=== PATIENT | female | born 1995 | race Caucasian/White ===

== ENCOUNTER 2022-02-20 17:21 | Emergency (ER) | payer OTHER, SELFPAY ==
[2022-02-20 17:37] VITALS: BP 111/65; PULSE 68; RESP 14; TEMP 36.6; O2SAT 99
--- NOTE | 2022-02-20 17:53 | ED.SKABFB ---
HPI - Skin/Abscess/Foreign Bdy General Chief complaint: Skin/Abscess/Foreign Body Stated complaint: Skin Sore Time Seen by Provider: 02/20/22 17:53 Source: patient Mode of arrival: ambulatory Limitations: no limitations History of Present Illness HPI narrative: 26-year-old female presented for complaint painful skin lesion to the left corner of the mouth for over one week. Endorses getting these lesions frequently, started taking one fluconazole each month one week before menses due to frequent yeast infection and the mouth lesion concurrently. Also applied toothpaste, fungal cream, and previously prescribed triamcinolone cream without relief. She has followed with credit reporting clerk. Denies bleeding or drainage from the site. MD complaint: rash Related Data Home Medications Medication Instructions Recorded Confirmed norgestimate 0.25 mg-ethinyl 1 tablet PO DAILY 02/20/22 02/20/22 estradiol 35 mcg tablet (Sprintec (28)) Allergies Allergy/AdvReac Type Severity Reaction Status Date / Time No Known Allergies Allergy Verified 02/20/22 17:45 Review of Systems Review of Systems: CONSTITUTIONAL: Denies body aches, fever, chills, or sweats. EYES: Denies visual changes, redness, or discharge. ENT: Denies rhinorrhea, congestion, sore throat, or otalgia. CARDIOVASCULAR: Denies chest pain, palpitations, or edema. RESPIRATORY: Denies cough or dyspnea. SKIN:Left mouth skin lesion MUSCULOSKELETAL: Denies back pain, joint pain, or myalgia. NEUROLOGIC: Denies headache PMFSH Comments At time of signature, I have reviewed and agree with nursing past medical, surgical, social and family history unless otherwise noted. Please see nursing chart for further information. There is no relevant family history pertinent to the presenting complaint Exam Narrative: GENERAL: Well-appearing EYES: conjunctivae clear, and EOMI. ENT: Mucous membranes moist. Left corner of mouth with crusted lesion c/w angular chelitis. Oropharynx without edema, erythema or lesions. CHEST: No respiratory distress. SKIN: Warm, dry. NEURO: Alert and oriented x3. PSYCH: Normal mood and affect Course Course Emergency Course: Patient is aware of diagnosis, understands and agrees to treatment plan. Anticipatory guidance given. Patient agrees to follow-up as directed and is aware of reasons to seek care at the emergency department. Portions of this record may have been created with voice recognition software Level of Care: [facility] Visit Vital Signs Vital signs: Vital Signs Temperature 97.8 F 02/20/22 17:37 Pulse Rate 68 02/20/22 17:37 Respiratory Rate 14 02/20/22 17:37 Blood Pressure 111/65 02/20/22 17:37 Pulse Oximetry 99 02/20/22 17:37 Oxygen Delivery Room Air 02/20/22 17:37 Temperature 97.8 F 02/20/22 17:37 Pulse Rate 68 02/20/22 17:37 Respiratory Rate 14 02/20/22 17:37 Blood Pressure 111/65 02/20/22 17:37 Pulse Oximetry 99 02/20/22 17:37 Oxygen Delivery Room Air 02/20/22 17:37 Reviewed MDM - Skin/Abscess/Foreign Bdy MDM Narrative Medical decision making narrative: Rx fluconazole and advised supportive measures and signs/symptoms to go to the ER. Pt is appropriate for outpt treatment and f/u. Differential Diagnosis Differential diagnosis: Likely abscess of skin or subcutaneous tissue, urticaria, herpes zoster, cellulitis and contact dermatitis Discharge Plan Discharge Clinical Impression: Angular cheilitis Patient Disposition: Home, Self-Care Condition: Stable Additional Instructions: Take the medication as directed Use barrier creams (eg,?zinc oxide or petrolatum) Follow-up with credit reporting clerk and primary care provider. Go to the ER for any worsening symptoms or concerns. Prescriptions: New fluconazole 100 mg tablet 100 mg PO DAILY 14 Days Qty: 14 0RF No Action norgestimate-ethinyl estradiol [Sprintec (28)] 0.25-35 mg-mcg tablet 1 tablet PO DAILY Follow-up/
== END 2022-02-20 18:07 | disposition home or self-care (01) ==
PROVIDERS: Emergency Provider Nurse Practitioner Family
DX: K13.0 Diseases of lips (principal)
CPT/HCPCS: 99213; G0463

== ENCOUNTER 2022-02-24 10:31 | Emergency (ER) | payer OTHER, SELFPAY ==
--- NOTE | 2022-02-24 10:33 | ED.FEMALEGU ---
HPI - Female Genitourinary General Chief complaint: Urogenital-Female Stated complaint: std test Time Seen by Provider: 02/24/22 10:33 Source: patient Mode of arrival: ambulatory Limitations: no limitations History of Present Illness HPI Narrative: Ms. Smith is a 26-year-old female patient presenting to the clinic today with complaints of possible STI. She reports that she began having green discharge starting yesterday with some low back pain. Reports that she has had a history of chlamydia in the past and this drainage looks like a chlamydia drainage. She is currently on fluconazole for an oral yeast infection. She denies any urinary symptoms currently. She denies any fever or chills. States that she has been with the same partner for approximately 3 to 4 months but is unaware if he is faithful or not. Related Data Home Medications Medication Instructions Recorded Confirmed norgestimate 0.25 mg-ethinyl 1 tablet PO DAILY 02/20/22 02/24/22 estradiol 35 mcg tablet (Sprintec (28)) fluconazole 100 mg tablet 100 mg DIRECTED 02/24/22 02/24/22 Allergies Allergy/AdvReac Type Severity Reaction Status Date / Time No Known Allergies Allergy Verified 02/20/22 17:45 Review of Systems Review of Systems: Pertinent positives per HPI. Patient denies any fever, chills, rash, headache, visual changes, dizziness, cough, runny nose, sore throat, shortness of breath, chest pain, palpitations, nausea, vomiting, diarrhea, constipation, abdominal pain, or any urinary issues. PMFSH Comments At the time of my signature, I reviewed and agree with the nursing past medical, surgical, social, and family history. There is no relevant family history pertinent to the patient complaint. Exam Narrative: General: Well-developed, well nourished, in no apparent distress Head: Normocephalic, atraumatic. Cardio: Regular rate and rhythm, s1 and s2 normal, no murmur appreciated. Resp: Clear to auscultation bilaterally, no rhonchi, rales, wheezing or rubs. Abdomen: Soft, pliable, bowel sounds present in all quadrants, non-tender to palpation, no CVAT tenderness. : Pelvic exam performed with Barbara FRIAS at bedside. Verbal consent obtained from patient. Normal external female genitalia without lesions or masses, Urinary meatus: midline, patent without discharge,no lesion or mass Vagina: No lesions, masses, white vaginal discharge in pelvic vault Cervix: pink without mass, lesions, or cervical motion tenderness. Adnexa: without palpable mass or tenderness. Course Course Emergency Course: Portions of this record may have been created with voice recognition software. Level of Care: Express Care Visit Vital Signs Vital signs: Vital signs reviewed MDM - Female Genitourinary MDM Narrative Medical decision making narrative: At the time of visit patient is resting comfortably on the exam table. She would like to have STD testing done today. Urinalysis shows a trace of leukocytes so we will send this for culture and test was negative. Patient has reports of green vaginal discharge. I will treat patient with a course of doxycycline and metronidazole to cover chlamydia, BV, trichomoniasis. We will give her a one-time dose of Rocephin 500 mg to cover gonorrhea. She is currently taking fluconazole which will cover yeast. Supportive measures were discussed with the patient and anticipatory guidance was reviewed. Patient voiced understanding of discharge instructions and agrees to the treatment plan. Differential Diagnosis Differential diagnosis: Likely urinary tract infection, bacterial vaginosis, trichomoniasis, cervicitis, vaginitis, cystitis and other (Sexually transmitted infection) Discharge Plan Discharge Clinical Impression: Purulent vaginal discharge Patient Disposition: Home, Self-Care Condition: Stable Instructions: Antibiotic Form, Sexually Transmitted Diseases (ED), Safe Sex Practices (ED), Vaginal Discharge
[2022-02-24 10:37] VITALS: BP 115/58; PULSE 82; RESP 20; TEMP 36.6; O2SAT 99
[2022-02-24] MEDS: cefTRIAXone 500 MG, LIDOCAINE HCL 1% LOCAL INJ 1 ML IM (11:13)
== END 2022-02-24 11:38 | disposition home or self-care (01) ==
PROVIDERS: Emergency Provider Nurse Practitioner Family
DX: N89.8 Other specified noninflammatory disorders of vagina (principal)
CPT/HCPCS: 81003; 81025; 87070; 87086; 87491; 87591; 87661; 96372; 99214; G0463; J0696

== ENCOUNTER 2022-06-06 14:15 | Emergency (ER) | payer OTHER, SELFPAY ==
--- NOTE | 2022-06-06 14:27 | ED.URI ---
HPI - URI/Sore Throat General Chief Complaint: Upper Respiratory Infection Stated Complaint: congestion cough and sore throat Time Seen by Provider: 06/06/22 14:27 Source: patient, RN notes reviewed and old records reviewed Mode of arrival: ambulatory Limitations: no limitations History of Present Illness HPI Narrative: 26-year-old female presents to the [facility] with 10 days of cough, congestion and a sore throat. Has taken Robitussin. reports being at [facility] 4 days ago, was tested for COVID, flu and strep which she reports all was negative. patient states that she keeps coming down with a cold, getting better, this daughter gets sick patient is not toxic. Denies fevers. Related Data Home Medications Medication Instructions Recorded Confirmed norgestimate 0.25 mg-ethinyl 1 tablet PO DAILY 06/06/22 06/06/22 estradiol 35 mcg tablet (Sprintec (28)) Allergies Allergy/AdvReac Type Severity Reaction Status Date / Time No Known Allergies Allergy Verified 06/06/22 14:45 Review of Systems Review of Systems: All systems reviewed & are unremarkable except as noted in HPI and below Constitutional: Constitutional: Reports no additional constitutional complaints, Denies chills and Denies fever(s) Eyes: Eyes: Reports no additional eye complaints ENT: Reports as per HPI Cardiovascular: Cardiovascular: Reports no additional cardiovascular complaints Respiratory: Respiratory: Reports no additional respiratory complaints Gastrointestinal: Gastrointestinal: Reports no additional gastrointestinal complaints Musculoskeletal: Musculoskeletal: Reports no additional musculoskeletal complaints Integumentary/Breasts: Skin/Breast: Reports system reviewed and no additional complaints, except as docu Neurologic: Reports system reviewed and no additional complaints, except as documented Psychiatric: Psychiatric: Reports no additional psychiatric complaints Allergic/Immunologic: Allergic/Immunologic: Reports no additional allergic/immunologic complaints PMFSH Comments At the time of my signature, I reviewed and agree with the nursing past medical, surgical, social, and family history. There is no relevant family history pertinent to the patient complaint. Exam Const: General: healthy appearing, comfortable, no acute distress, well developed, alert and well nourished Nutritional Appearance: well nourished Orientation/consciousness: patient oriented x3 Limitations: no limitations HENMT: Head: normal to inspection Ears: external ears normal, TM's normal bilaterally and EAC's normal Face/Nose/Sinus: Normal external nose present and Normal nares present Face and sinus: normal facial exam Mouth: Yes Normal oral and palatal mucosa present, Yes lip normal and Yes moist mucous membranes Throat: posterior oropharynx normal and uvula midline Eyes: General: appearance normal, both eyes and all related structures Conjunctivae: conjunctivae normal Pupils: Equal, round and reactive pupils present Neck: Neck: normal visual inspection, full ROM, no lymphadenopathy and no meningeal signs Chest: Chest palpation & inspection: normal inspection of the chest Resp: Effort & Inspection: normal respiratory effort and no use of accessory muscles Auscultation: clear to auscultation bilaterally, no crackles, no rales, no rhonchi and no wheezes Cardio: Rate: regular rate Rhythm: regular rhythm Back/Spine/Pelvis: Cervical Spine: cervical ROM normal and No Cervical spine tenderness Thoracic/Lumbar Spine: thoracic and lumbar spine normal to inspection and thoraco-lumbar ROM normal Skin: General skin exam: normal color Rashes: no rashes Wounds: no wounds Neuro: General: patient oriented x3, moves all extremities, no meningeal signs and no focal motor deficits Cranial nerves: Yes Equal, round and reactive pupils present Speech: normal speech Gait exam (Neuro): Normal gait present Extrem: General: normal to inspection, fu
[2022-06-06 14:34] VITALS: BP 119/59; PULSE 77; RESP 18; TEMP 36.8; O2SAT 100
== END 2022-06-06 15:20 | disposition home or self-care (01) ==
PROVIDERS: Emergency Provider Nurse Practitioner
DX: J06.9 Acute upper respiratory infection, unspecified (principal); R09.82 Postnasal drip
CPT/HCPCS: 99213; G0463

== ENCOUNTER 2022-08-29 12:48 | Emergency (ER) | payer OTHER, SELFPAY ==
[2022-08-29 12:56] VITALS: BP 117/64; PULSE 83; RESP 14; TEMP 36.2; O2SAT 99
--- NOTE | 2022-08-29 13:27 | ED.GENADULT ---
HPI - General Adult General Chief complaint: Urogenital-Female Stated complaint: STD Exposure Source: patient Mode of arrival: ambulatory Limitations: no limitations History of Present Illness HPI narrative: Patient presents for evaluation of vaginal discharge for last 2 days. She indicates the is green in appearance. She has similar symptoms typically right before menstruation however it is usually quite light at that time. She states her current symptoms are consistent with gonorrhea which she has had in the past. Her male sex partner told her that he has gonorrhea. They were last sexually active with one another about 2-3 weeks ago. LMP three weeks ago. Compliant with oral contraception. She denies any fever, chills, nausea, vomiting, abdominal pain, urinary symptoms, vaginal bleeding. Related Data Home Medications Medication Instructions Recorded Confirmed norgestimate 0.25 mg-ethinyl 1 tablet PO DAILY 06/06/22 08/29/22 estradiol 35 mcg tablet (Sprintec (28)) amitriptyline 25 mg tablet 25 mg PO HS PRN Migraine Headache 08/29/22 08/29/22 Allergies Allergy/AdvReac Type Severity Reaction Status Date / Time No Known Allergies Allergy Verified 08/29/22 13:05 Review of Systems Review of Systems: CONSTITUTIONAL: Denies fever, chills, or sweats. EYES: Denies visual changes, redness, or discharge. ENT: Denies rhinorrhea, congestion, sore throat, or otalgia. CARDIOVASCULAR: Denies chest pain, palpitations, or edema. RESPIRATORY: Denies cough or dyspnea. GASTROINTESTINAL: Denies abdominal pain, nausea, vomiting, or diarrhea. GENITOURINARY: Reports green vaginal discharge. Denies dysuria or hematuria. SKIN: Denies rash or itching. MUSCULOSKELETAL: Denies back pain, joint pain, or myalgia. NEUROLOGIC: Denies headache, numbness, dizziness, or weakness. PSYCHIATRIC: Denies anxiety or depression. [facility] Past Medical History Medical History History of gonorrhea Surgical History Surgical History No pertinent past surgical history Family History Family History Mother Family history non-contributory Social History Social History Substance use: never Living arrangements: with family Gender identity (if verbalized by the patient): Female Sexual Orientation (if Verbalized by the Patient): Straight or Heterosexual Spiritual care concerns: No Exam Narrative: GENERAL: Well-appearing, well-nourished, and in no acute distress. HEAD: Normocephalic, atraumatic. EYES: PERRLA and EOMI. ENT: Nares clear, no rhinorrhea or epistaxis. Mucous membranes moist. Oropharynx without tonsillar hypertrophy exudate or other lesions. Bilateral TMs pearly zimmerman nonbulging NECK: Supple. No adenopathy or masses. No carotid bruits or JVD CHEST: Clear to auscultation. No respiratory distress. No wheezes rales or rhonchi HEART: Regular rate and rhythm. No murmur heard. Normal peripheral pulses. ABDOMEN: Soft, nontender, nondistended, normal active bowel sounds. EXTREMITIES: Normal range of motion. No edema. SKIN: Warm, dry, no rash. NEURO: No focal deficits. Alert and oriented x3. PSYCH: Normal mood and affect. Course Course Emergency Course: This is a 27-year-old female who presented for evaluation of green vaginal discharge with recent gonorrhea exposure. She elected be empirically treated for gonorrhea. Will also treat for chlamydia. She has no abdominal pain suggesting PID. She has a follow up with her OBGYN in near future. Advised to keep that appt. Go to ER for fever, abdominal pain or worsening symptoms. Pt in agreement with plan of care Level of Care: Express Care Visit Vital Signs Vital signs: Vital Signs Temperature 36.2 C L 08/29/22 12:56 Pulse Rate 83 02/05
[2022-08-29] MEDS: cefTRIAXone 500 MG, LIDOCAINE HCL 1% LOCAL INJ 1 ML IM (13:30)
== END 2022-08-29 13:50 | disposition home or self-care (01) ==
PROVIDERS: Emergency Provider Nurse Practitioner
DX: N89.8 Other specified noninflammatory disorders of vagina (principal); Z20.2 Contact with and (suspected) exposure to infections with a predominantly sexual mode of transmission
CPT/HCPCS: 87491; 87591; 87661; 96372; 99214; G0463; J0696

== ENCOUNTER 2023-07-23 09:51 | Emergency (ER) | payer OTHER, SELFPAY ==
[2023-07-23 10:00] VITALS: BP 114/61; PULSE 100; RESP 20; TEMP 37.1; O2SAT 98
--- NOTE | 2023-07-23 10:13 | ED.GENADULT ---
HPI - General Adult General Chief complaint: Upper Respiratory Infection Stated complaint: Cough/Chest Congestion/Headache Source: patient, RN notes reviewed and old records reviewed Mode of arrival: ambulatory Limitations: no limitations History of Present Illness HPI narrative: 28-year-old female presents to [facility] with complaints of cough for 5 weeks. Patient states that on she started having sinus congestion, myalgia, ear pressure, and fatigue. Patient states was exposed to influenza and COVID this past week. Patient taking [id number] medications with no relief. MD complaint: Flu symptoms Onset (ago): day(s) (2) Related Data Home Medications Medication Instructions Recorded Confirmed norgestimate 0.25 mg-ethinyl 1 tablet PO DAILY 06/06/22 07/23/23 estradiol 35 mcg tablet (Sprintec (28)) amitriptyline 25 mg tablet 25 mg PO HS PRN Migraine Headache 08/29/22 07/23/23 Allergies Allergy/AdvReac Type Severity Reaction Status Date / Time No Known Allergies Allergy Verified 07/23/23 10:20 Review of Systems Constitutional: Constitutional: Reports no additional constitutional complaints, Reports body ache(s), Denies chills, Reports fatigue, Denies fever(s) and Denies headache(s) Eyes: Eyes: Reports no additional eye complaints and Denies blurry vision ENT: Reports system reviewed and no additional complaints, except as documented, Denies vertigo, Denies dizziness, Denies ear discharge, Denies otalgia, Denies facial pain, Denies headache(s), Reports nasal congestion, Denies nasal discharge, Denies sinus pain, Denies sinus pressure and Denies sore throat Cardiovascular: Cardiovascular: Reports no additional cardiovascular complaints, Denies chest pain, Denies chest pain at rest, Denies rapid heart rate and Denies dyspnea Respiratory: Respiratory: Reports no additional respiratory complaints, Denies chest congestion, Reports cough, Denies pain on inspiration, Denies pain with cough and Denies dyspnea Gastrointestinal: Gastrointestinal: Denies abdominal pain, Denies diarrhea, Denies nausea and Denies vomiting Integumentary/Breasts: Skin/Breast: Denies rash Neurologic: Reports system reviewed and no additional complaints, except as documented, Denies vertigo, Denies dizziness and Denies headache(s) Endocrine: Endocrine: Denies fatigue PMFSH Past Medical History Medical History History of gonorrhea Surgical History Surgical History No pertinent past surgical history Family History Family History Mother Family history non-contributory Social History Social History Substance use: never Living arrangements: with family Gender identity (if verbalized by the patient): Female Sexual Orientation (if Verbalized by the Patient): Straight or Heterosexual Spiritual care concerns: No Comments At the time of my signature, I reviewed and agree with the nursing past medical, surgical, social, and family history. There is no relevant family history pertinent to the patient complaint. Exam Const: General: cooperative, healthy appearing, no acute distress and well nourished Nutritional Appearance: well nourished Orientation/consciousness: patient oriented x3 Limitations: no limitations HENMT: Head: normal to inspection and normocephalic Ears: external ears normal, TM's normal bilaterally, mastoids normal and Abnormal EAC present Face/Nose/Sinus: normal facial exam Face and sinus: normal facial exam Mouth: Yes Normal oral and palatal mucosa present, Yes oropharynx normal and Yes moist mucous membranes Throat: tonsils normal, uvula midline and no uvular edema Eyes: General: appearance normal, both eyes and all related structures Sclera: sclerae normal Pupils: Equal
== END 2023-07-23 10:25 | disposition home or self-care (01) ==
PROVIDERS: Emergency Provider Registered Nurse
DX: J10.1 Influenza due to other identified influenza virus with other respiratory manifestations (principal); Z20.822 Contact with and (suspected) exposure to COVID-19
CPT/HCPCS: 87426; 87804; 99213; C9803; G0463

== ENCOUNTER 2024-02-13 18:08 | Emergency (ER) | payer OTHER, SELFPAY ==
[2024-02-13 18:10] VITALS: BP 122/71; PULSE 65; RESP 18; TEMP 36.2; O2SAT 99
--- NOTE | 2024-02-13 18:24 | ED.FEMALEGU ---
HPI - Female Genitourinary General Chief complaint: Urogenital-Female Stated complaint: burning when urinating Time Seen by Provider: 02/13/24 18:09 Source: patient Mode of arrival: ambulatory Limitations: no limitations History of Present Illness HPI Narrative: Patient is a 28-year-old female with significant past medical history that presents today for UTI symptoms. Patient states that she has multiple UTI is around 6 of them in the past 3 months. She states that she has been on 5 different antibiotics in of them have worked. She states she will feel better for a few days and then they will come right back. She did show me 1 culture with susceptibilities that was the last 1 and it was susceptible to the antibiotics she is currently taking. But she states that is not worked and she still feels like she has UTI and she went today his OB Gyne and they did a urine dipstick and was positive. MD elicited complaint: dysuria and UTI Pertinent past history: recurrent UTIs Onset (ago): month(s) Severity: moderate Consistency: intermittent Vaginal discharge: none Vaginal bleeding: none Urinary symptoms: Dysuria, Urgency and Frequency Exacerbating factors: none Relieving factors: none Associated symptoms: denies other symptoms Patient : No Related Data Home Medications Medication Instructions Recorded Confirmed No Home Medications 02/22/24 02/22/24 Allergies Allergy/AdvReac Type Severity Reaction Status Date / Time bee venom protein (honey bee) Allergy Mild Anaphylactic Verified 02/22/24 21:18 Shock lamotrigine Allergy Mild Itching Verified 02/22/24 21:18 cats Allergy Mild Hives Uncoded 02/22/24 21:18 Review of Systems Review of Systems: All systems reviewed & are unremarkable except as noted in HPI and below Constitutional: Constitutional: Reports as per HPI Eyes: Eyes: Reports no additional eye complaints ENT: Reports system reviewed and no additional complaints, except as documented Cardiovascular: Cardiovascular: Reports no additional cardiovascular complaints Respiratory: Respiratory: Reports no additional respiratory complaints Gastrointestinal: Gastrointestinal: Reports no additional gastrointestinal complaints Genitourinary: Genitourinary: Reports as per HPI, Reports nocturia and Reports dysuria Musculoskeletal: Musculoskeletal: Reports no additional musculoskeletal complaints Integumentary/Breasts: Skin/Breast: Reports system reviewed and no additional complaints, except as docu Neurologic: Reports system reviewed and no additional complaints, except as documented Psychiatric: Psychiatric: Reports no additional psychiatric complaints Endocrine: Endocrine: Reports no additional endocrine complaints Hematologic/Lymphatic: Hematologic/Lymphatic: Reports no additional hematologic/lymphatic complaints Allergic/Immunologic: Allergic/Immunologic: Reports no additional allergic/immunologic complaints PMFSH Past Medical History Medical History (Updated 03/07/24 @ 08:57 by Bella Patel APRN) History of gonorrhea Surgical History Surgical History No pertinent past surgical history Family History Family History (Updated 02/22/24 @ 21:18 by Bella Patel APRN) Mother Ovarian cyst Social History Social History Smoking status: Never smoker Substance use: never Living arrangements: with family Gender identity (if verbalized by the patient): Female Sexual Orientation (if Verbalized by the Patient): Straight or Heterosexual Spiritual care concerns: No Exam Const: General: healthy appearing Nutritional Appearance: well nourished Orientation/consciousness: patient oriented x3 HENMT: Head: normal to inspection Ears: external ears normal Face/Nose/Sinus: Normal external nose present Face and sinus: normal facial exam Eyes: Conjunctivae: conjunctivae nor
[2024-02-13 18:51] LABS: Add Urine Microscopic? NO; Appearance Urine Clear (Clear); Bilirubin Urine Negative (Negative); Blood Urine Negative (Negative); Color Urine Yellow (Yellow); Glucose Urine UA Negative (Negative); Ketones Urine Negative (Negative); Leukocyte Esterase Ur Negative LEU/UL (Negative); Nitrate Urine Negative (Negative); Protein Urine Negative (Negative); Specific Grav Ur 1.025 (1.010-1.020); Urobilinogen Urine 0.2 mg/dL (0.2-1.0)
[2024-02-13 18:52] LABS: Urine Pregnancy Test Negative
[2024-02-13 18:53] LABS: Pregnancy On Board Control Positive
[2024-02-13] MEDS: DOXYCYCLINE HYCLATE 100 MG TABLET PO (18:59)
--- NOTE | 2024-02-13 19:00 | PC.NURSE ---
assumed care. report received from Sandra FRIAS
[2024-02-13 19:17] VITALS: BP 108/63; PULSE 70; RESP 18; O2SAT 99
== END 2024-02-13 19:17 | disposition home or self-care (01) ==
PROVIDERS: Emergency Provider Family Medicine; PCP Family Medicine
DX: N39.0 Urinary tract infection, site not specified (principal)
CPT/HCPCS: 81003; 81025; 99283; A9270

== ENCOUNTER 2024-02-22 17:27 | Outpatient (CLI) | payer OTHER, SELFPAY ==
[2024-02-22 17:48] LABS: Basophils Absolute Auto 0.03 K/mm3 (0.00-0.10); Basophils Percent Auto 0.4 % (0.0-1.0); Eosinophils Absolute Auto 0.19 K/mm3 (0.02-0.50); Eosinophils Percent Auto 2.6 % (1.0-6.0); Hematocrit 38.6 % (35.0-49.0); Hemoglobin 13.4 g/dL (12.0-15.0); Immature Granulocyte Absolute 0.03 K/mm3 (0.00-0.00); Immature Granulocyte Percent A 0.4 % (0.0-0.0); Lymphocytes Absolute Auto 2.09 K/mm3 (1.10-4.50); Lymphocytes Percent Auto 28.2 % (18.0-42.0); Mean Corpuscular HGB Conc 34.7 g/dL (32-36); Mean Corpuscular Hemoglobin 30.5 pg (27.0-31.0); Mean Corpuscular Volume 87.9 fL (78.0-102.0); Mean Platelet Volume 9.1 fl (9.2-11.8); Monocytes Absolute Auto 0.61 K/mm3 (0.10-0.90); Monocytes Percent Auto 8.2 % (2.0-11.0); Neutrophils Absolute Auto 4.45 K/mm3 (1.70-7.20); Neutrophils Percent Auto 60.2 % (50.0-70.0); Platelet Count Result 336 K/mm3 (150-420); Red Blood Count 4.39 M/mm3 (4.20-5.40); Red Cell Distribution Width 12.1 % (11.6-14.4); White Blood Count 7.4 K/mm3 (4.8-10.8)
[2024-02-22 17:49] LABS: Add Urine Microscopic? NO; Appearance Urine Clear (Clear); Bilirubin Urine Negative (Negative); Blood Urine Negative (Negative); Color Urine Yellow (Yellow); Glucose Urine UA Negative (Negative); Ketones Urine Negative (Negative); Leukocyte Esterase Ur Negative (Negative); Nitrate Urine Negative (Negative); Protein Urine Negative (Negative); Specific Grav Ur >= 1.030 (1.010-1.020); Urobilinogen Urine 0.2 mg/dL (0.2-1.0)
[2024-02-22 18:42] LABS: Albumin Level 4.5 g/dL (3.4-5.0); Alkaline Phosphatase 85 U/L (46-116); Anion Gap 6 mmol/L (4-12); Bilirubin,Total 0.8 mg/dL (0.00-1.00); Blood Urea Nitrogen 11 mg/dL (7-18); Calcium 9.1 mg/dL (8.5-10.1); Carbon Dioxide 28 mmol/L (21-32); Chloride 102 mmol/L (98-108); Estimated Glomerular Filt Rate > 60; Glucose 79 mg/dL (70-99); Osmolality Calculated 280 mOsm/kg (285-295); Potassium 3.4 mmol/L (3.5-5.1); Sodium 136 mmol/L (136-145); Total Protein 7.7 g/dL (6.4-8.2)
[2024-02-22 18:51] LABS: Alanine Aminotransferase 44 U/L (14-59); Aspartate Amino Transferase 42 U/L (15-37)
[2024-02-25 02:44] LABS: FSH 7.9 mIU/mL; LH 8.5 mIU/mL; Prolactin 8.5 ng/mL
== END 2024-02-22 17:28 | disposition home or self-care (01) ==
PROVIDERS: PCP Nurse Practitioner Family; Visit Provider Nurse Practitioner Family
DX: R63.4 Abnormal weight loss (principal); N91.2 Amenorrhea, unspecified; R39.9 Unspecified symptoms and signs involving the genitourinary system
CPT/HCPCS: 36415; 80053; 81003; 83001; 83002; 84146; 84443; 85025

== ENCOUNTER 2024-03-08 15:43 | Outpatient (CLI) | payer OTHER, SELFPAY ==
--- NOTE | ~2024-03-08 | US_ITS ---
EXAMINATION: US pelvic complete w TV DATE: 03/08/2024 16:43 INDICATION: Amenorrhea. TECHNIQUE: Multiple transabdominal and endovaginal sonographic images of the pelvis were obtained. COMPARISON: None. FINDINGS: The uterus measures 7.9 x 4.4 x 5.6 cm. The endometrial complex measures 4 mm in thickness. 5 mm ane choic nabothian cyst at the cervix. The right ovary measures 2.6 x 1.1 x 1.0 cm. The left ovary measu res 1.5 x 1.4 x 1.1 cm. There is small amount of likely physiologic anechoic free fluid in the pelvis . IMPRESSION: 1. Unremarkable pelvic ultrasound. Reviewed, dictated and finalized at location A.
== END 2024-03-08 15:44 | disposition home or self-care (01) ==
PROVIDERS: PCP Nurse Practitioner Family; Visit Provider Nurse Practitioner Family
DX: R39.9 Unspecified symptoms and signs involving the genitourinary system (principal); N92.6 Irregular menstruation, unspecified
CPT/HCPCS: 76830; 76856